=== PATIENT | male | born 1950 | race Hispanic/Latino ===

== ENCOUNTER 2017-01-22 16:34 | Emergency (ER) | payer MEDICARE, OTHER ==
[2017-01-22 16:40] VITALS: BP 114/67; PULSE 77; RESP 16; TEMP 97.5; O2SAT 100
--- NOTE | 2017-01-22 17:17 | ED PDOC ---
HPI: General Adult Time Seen by Provider: 01/22/17 16:41 Chief Complaint (Nursing): Upper Extremity Problem/Injury History Per: Patient Additional Complaint(s): Pt. states yesterday he was cutting his nails and accidentally cut his L 4th digit. Pt. reports noticing redness but no swelling or discharge. Denies fever. Tetanus not UTD. Past Medical History Reviewed: Historical Data, Nursing Documentation, Vital Signs Vital Signs: Last Vital Signs Temp 97.5 F L 01/22/17 16:37 Pulse 77 01/22/17 16:37 Resp 16 01/22/17 16:37 BP 114/67 01/22/17 16:37 Pulse Ox 100 01/22/17 18:05 - Medical History PMH: Arthritis, Diabetes, Diverticulitis (colon resection 8 yrs ago), HTN, Pneumonia Denies: HIV, Chronic Kidney Disease - Family History Family History: States: No Known Family Hx - Home Medications Home Medications: Ambulatory Orders Medication Instructions Recorded Aspirin [Ecotrin] 81 mg PO DAILY 02/03/16 Cholecalciferol (Vitamin D3) 5,000 unit PO Q48H 02/03/16 [Vitamin D3] Linagliptin [Tradjenta] 5 mg PO DAILY 02/03/16 Lisinopril [Zestril] 20 mg PO DAILY 02/03/16 Metformin ER [Glucophage XR] 750 mg PO BID 02/03/16 Multivitamin [Multi-Vitamin Daily] 1 tab PO DAILY 02/03/16 Omeprazole 40 mg PO DAILY 02/03/16 Simvastatin [Zocor] 20 mg PO HS 02/03/16 glyBURIDE [Micronase] 2.5 mg PO BID 02/03/16 Amoxicillin/Clavulanate [Augmentin 1 tab PO BID #20 tab 02/04/16 875 MG-125 MG] Tramadol HCl [Ultram] 50 mg PO Q6 PRN #20 tablet 02/04/16 Cephalexin [cephalexin] 500 mg PO Q6 #28 cap 01/22/17 - Allergies Allergies/Adverse Reactions: Allergies Allergy/AdvReac Type Severity Reaction Status Date / Time No Known Allergies Allergy Verified 02/03/16 11:31 Review of Systems ROS Statement: Except As Marked, All Systems Reviewed And Found Negative Physical Exam - Physical Exam Appears: Positive for: Well, Non-toxic, No Acute Distress Skin: Positive for: Normal Color, Warm. Negative for: Rash Extremity: Positive for: Capillary Refill (< 2 sconds of L 4th digit), Other ( Minimal erythema noted to medial nail margin of L 4th digit without swelling or discharge; no paronychia; cap refill < 2 seconds) - ECG O2 Sat by Pulse Oximetry: 100 - Progress ED Course And Treament: Tetanus prophylaxis administered. Disposition - Clinical Impression Clinical Impression: Cellulitis - Patient ED Disposition Is Patient to be Admitted: No - Disposition Referrals: Mariola Wilson [Outside] Disposition: Routine/Home Disposition Time: 17:19 Condition: STABLE Additional Instructions: FOLLOW WITH YOUR PMD IN 2 DAYS FOR WOUND CHECK RETURN TO ED IMMEDIATELY IF FEVER DEVELOPS OR REDNESS WORSENS Prescriptions: Cephalexin [cephalexin] 500 mg PO Q6 #28 cap Instructions: Cellulitis (ED) Forms: [employer] (Irish) Print Language: BERMUDIAN
== END 2017-01-22 17:37 | disposition home or self-care (01) ==
LOC: H.ER 16:34
DX: L03.019 Cellulitis of unspecified finger (principal)

== ENCOUNTER 2018-05-10 08:24 | Day surgery (SDC) | payer MEDICARE ==
[2018-05-10 08:41] VITALS: BMI 30.4
[2018-05-10] MEDS ORDERED: Lactated Ringer's 500 ML IV ONE (08:44)
[2018-05-10] MEDS ORDERED: Propofol 10 mg/ml Inj (20 ML) ONE (09:10)
[2018-05-10 09:49] VITALS: TEMP 98
[2018-05-10 09:52] VITALS: BP 111/63; PULSE 92; RESP 16; O2SAT 96
== END 2018-05-10 10:19 | disposition home or self-care (01) ==
LOC: H.ENDO 08:24
PROVIDERS: ATTEND Internal Medicine Gastroenterology
DX: Z86.010 Personal history of colon polyps (principal); K64.8 Other hemorrhoids; K62.1 Rectal polyp; D12.5 Benign neoplasm of sigmoid colon; D12.4 Benign neoplasm of descending colon; D12.2 Benign neoplasm of ascending colon
CPT/HCPCS: 45380; 82948; 88305; J2001; J2704; J7120

== ENCOUNTER 2018-06-07 08:58 | Day surgery (SDC) | payer MEDICARE, OTHER ==
[2018-06-07] MEDS ORDERED: Lactated Ringer's 500 ML IV ONE (09:32)
[2018-06-07] MEDS ORDERED: Propofol 10 mg/ml Inj (20 ML) ONE (10:18)
[2018-06-07 11:10] VITALS: TEMP 97.2
[2018-06-07 11:22] VITALS: BP 117/67; PULSE 87; RESP 20; O2SAT 99
== END 2018-06-07 11:58 | disposition home or self-care (01) ==
LOC: H.ENDO 08:58
PROVIDERS: ATTEND Internal Medicine Gastroenterology
DX: K21.9 Gastro-esophageal reflux disease without esophagitis (principal); E11.9 Type 2 diabetes mellitus without complications; I10 Essential (primary) hypertension; K29.50 Unspecified chronic gastritis without bleeding
CPT/HCPCS: 43239; 82948; 88305; J2001; J2704; J7120